=== PATIENT | female | born 1965 | race African-American/Black ===

== ENCOUNTER 2016-10-27 12:59 | Emergency (ER) | payer MEDICAID, OTHER ==
[~2016-10-27] VITALS: Ht 154.9 cm; Wt 90.9 kg
[~2016-10-27 12:59] MED LIST: CYCL7.5T27 PO; HYDR-3971 PO; METH500T6 PO
[2016-10-27 13:09] VITALS: BP 134/89
[2016-10-27] MEDS ORDERED: ACETAMINOPHEN PO (13:26)
[2016-10-27] MEDS ORDERED: CAFFEINE PO (13:26)
[2016-10-27] MEDS ORDERED: LISI-662 PO (13:26)
[2016-10-27] MEDS ORDERED: LEVO50 PO (13:26)
[2016-10-27] MEDS ORDERED: BUTALBITAL PO (13:26)
[2016-10-27] MEDS ORDERED: PREG50 PO (13:26)
[2016-10-27] MEDS ORDERED: MORPHINE SULFATE 4 MG/ML SYRINGE IM ONE (13:45)
== END 2016-10-27 13:56 | disposition home or self-care (01) ==
LOC: EMS 13:02
DX: M54.2 Cervicalgia (principal); G89.29 Other chronic pain; E03.9 Hypothyroidism, unspecified; I10 Essential (primary) hypertension; F17.210 Nicotine dependence, cigarettes, uncomplicated; Z76.0 Encounter for issue of repeat prescription
CPT/HCPCS: 96372; 99283; J2270

== ENCOUNTER → 2017-12-14 | Outpatient (CLI) | payer OTHER ==
[~2017-12-14] MED LIST changes: +ACETAMINOPHEN PO; +BUTALBITAL PO; +CAFFEINE PO; +LEVO50 PO; +LISI-662 PO; +PREG50 PO
== END | disposition home or self-care (01) ==
LOC: RADPV 16:00
PROVIDERS: ATTEND Internal Medicine Nephrology
DX: N18.3 Chronic kidney disease, stage 3 (moderate) (principal)
CPT/HCPCS: 76770

== ENCOUNTER 2017-12-28 20:52 | Emergency (ER) | payer OTHER ==
[~2017-12-28] VITALS: Ht 154.9 cm; Wt 90.0 kg
[2017-12-28] MEDS ORDERED: TERB250 PO (21:11)
[2017-12-28] MEDS ORDERED: DULO60CA44 PO (21:11)
[2017-12-28 21:53] LABS: BASOPHILS % (AUTO) 0.5 % (0.0-2.0); EOSINOPHILS % (AUTO) 1.1 % (1.0-6.0); HEMATOCRIT 29.1 % (36-46); HEMOGLOBIN 9.6 g/dL (12.0-16.0); LYMPHOCYTES # (AUTO) 1.8 K/uL (1.0-4.8); LYMPHOCYTES % (AUTO) 25.5 % (22.0-44.0); MEAN CORPUSCULAR HEMOGLOBIN 27.7 pg (26.0-34.0); MEAN CORPUSCULAR VOLUME 84 fL (80-100); MONOCYTES # (AUTO) 0.5 K/uL (0.1-1.0); MONOCYTES % (AUTO) 7.6 % (2.0-9.0); NEUTROPHILS # (AUTO) 4.5 K/uL (1.8-7.7); NEUTROPHILS % (AUTO) 65.3 % (40.0-70.0); PLATELET COUNT (AUTO) 162 K/uL (150-450); RED BLOOD CELL COUNT(AUTO) 3.47 MIL/uL (4.00-5.20); RED CELL DISTRIBUTION WIDTH 15.5 % (11.5-14.5)
[2017-12-28 22:04] LABS: CALCIUM, TOTAL 8.6 mg/dL (8.8-10.5); CREATININE 1.31 mg/dL (0.60-1.30); POTASSIUM 3.6 mmol/L (3.5-5.1)
[2017-12-28 22:09] LABS: ALBUMIN 3.3 g/dL (3.4-5.0); BILIRUBIN,TOTAL 0.2 mg/dL (0.1-1.0); TOTAL PROTEIN, SERUM 6.7 g/dL (6.4-8.2)
[2017-12-28] MEDS ORDERED: PANTOPRAZOLE SODIUM 40 MG/VIAL IVP ONE (22:15)
[2017-12-28 22:53] LABS: APPEARANCE,URINE CLEAR (CLEAR); BILIRUBIN,URINE NEGATIVE (NEGATIVE); GLUCOSE, URINE (UA) NEGATIVE (NEGATIVE); KETONES,URINE NEGATIVE (NEGATIVE); LEUKOCYTE ESTERASE ,URINE NEGATIVE (NEGATIVE); NITRATE,URINE NEGATIVE (NEGATIVE); OCCULT BLOOD,URINE NEGATIVE (NEGATIVE); PROTEIN,URINE NEGATIVE (NEGATIVE); UROBILINOGEN,URINE 0.2 mg/dL (<=1.0)
[2017-12-29 00:38] VITALS: BP 144/84
== END 2017-12-29 01:12 | disposition home or self-care (01) ==
LOC: EMS 20:52
DX: K92.2 Gastrointestinal hemorrhage, unspecified (principal); K92.0 Hematemesis; I10 Essential (primary) hypertension; E03.9 Hypothyroidism, unspecified; F17.210 Nicotine dependence, cigarettes, uncomplicated
CPT/HCPCS: 36415; 80053; 81003; 82150; 83690; 85025; 96374; 99284; C9113